=== PATIENT | female | born 1970 | race Caucasian/White ===

== ENCOUNTER 2018-01-25 13:48 | Emergency (ER) | payer MEDICAID, OTHER ==
[~2018-01-25] VITALS: Ht 175.3 cm; Wt 70.0 kg
[2018-01-25 13:57] VITALS: BP 110/77
[2018-01-25] MEDS ORDERED: BACL20TA PO (16:05)
[2018-01-25] MEDS ORDERED: ketorolac trometh inj. 60 MG/2 ML VIAL IM ONE (16:05)
[2018-01-25] MEDS ORDERED: GABA600T2 PO (16:05)
[2018-01-25] MEDS ORDERED: [UNRECOGNIZED DRUG - CODE] PO (16:05)
== END 2018-01-25 16:25 | disposition home or self-care (01) ==
LOC: ER 13:48
DX: G89.29 Other chronic pain (principal); M54.2 Cervicalgia; M54.9 Dorsalgia, unspecified; F12.90 Cannabis use, unspecified, uncomplicated; F17.200 Nicotine dependence, unspecified, uncomplicated; Z90.49 Acquired absence of other specified parts of digestive tract; Z90.710 Acquired absence of both cervix and uterus; Z98.890 Other specified postprocedural states; Z88.1 Allergy status to other antibiotic agents; Z79.899 Other long term (current) drug therapy
CPT/HCPCS: 96372; 99283; J1885